=== PATIENT | female | born 1995 | race Caucasian/White ===

== ENCOUNTER 2017-08-01 21:32 | Emergency (ER) | payer OTHER ==
[~2017-08-01] VITALS: Ht 160 cm; Wt 104.3 kg
[~2017-08-01 21:32] MED LIST: MIRENA1 EACH; SERTRALINE HCL50 MG PO; TAMIFLU75 M1 PO
--- NOTE | 2017-08-01 22:03 | ED INFLUENZA/URI COMPLAINT ---
History of Present Illness General Chief Complaint: General Adult Stated Complaint: PT HAS A HIGH FEVER BODY ACHES Source: patient, family, old records Exam Limitations: no limitations Vital Signs & Intake/Output Vital Signs & Intake/Output Vital Signs Date Time Temp Pulse Resp B/P B/P Pulse O2 O2 Flow FiO2 Mean Ox Delivery Rate 08/01 2240 101.6 08/01 2240 101.8 106 20 124/80 99 Room Air 08/02 2155 103.7 08/01 2149 103.7 129 16 117/79 96 Allergies Coded Allergies: No Known Allergies (02/16/17) Reconcile Medications Ibuprofen 600 MG TABLET 1 TAB PO Q6P PRN pain, fever with food Levonorgestrel (Mirena) 20 MCG/24 HOUR (5 YEARS) IUD CONTROL (Reported) Nitrofurantoin Monohyd/M-Cryst (Macrobid 100 MG Capsule) 100 MG CAPSULE 1 CAP PO BID uti with food Oseltamivir Phosphate (Tamiflu) 75 MG CAPSULE 1 CAP PO BID flu Sertraline HCl 50 MG TABLET 1 TAB PO DAILY MENTAL HEALTH (Reported) Triage Note: PT PRESENTS TO THE ER C/O HIGH FEVER AND BODY ACHES. PT TOOK ADVIL 200 MG AT 1430. Triage Nurses Notes Reviewed? yes Onset: Yesterday Duration: day(s):, continues in ED Timing: recent history Severity: moderate Prior Episodes/Possible Cause: illness exposure Modifying Factors: Improves With: medication. Associated Symptoms: muscle aches LMP (ages 10-50): unknown : No Patient currently breastfeeds: No HPI: 3 days prior to admission patient complained of dysuria that is now better. 1 day prior to admission she reports fever myalgia. She denies anorexia vomiting diarrhea abdominal pain chest pain cough shortness breath headache rash bleeding. Past History Travel History Traveled to [place] past 21 day No Medical History Any Pertinent Medical History? see below for history Neurological: NONE EENT: NONE Cardiovascular: hyperlipidemia Respiratory: bronchitis, pneumonia Gastrointestinal: NONE Hepatic: NONE Renal: FREQUENT UTI'S Musculoskeletal: NONE Psychiatric: anxiety, depression Endocrine: NONE Blood Disorders: NONE Cancer(s): NONE RECREATIONAL COUNSELOR/Reproductive: endometriosis, OVARIAN CYSTS IUD History of MRSA: No History of VRE: No History of CDIFF: No Surgical History Surgical History: non-contributory Psychosocial History Who do you live with Family Services at Home None What is your primary language Yi Tobacco Use: Never used Family History Hx Contributory? No Review of Systems Review of Systems Constitutional: Reports: see HPI, fever. EENTM: Reports: no symptoms. Respiratory: Reports: no symptoms. Cardiovascular: Reports: no symptoms. GI: Reports: no symptoms. Genitourinary: Reports: see HPI, dysuria. Musculoskeletal: Reports: see HPI, muscle pain. Skin: Reports: no symptoms. Neurological/Psychological: Reports: no symptoms. Hematologic/Endocrine: Reports: no symptoms. Immunologic/Allergic: Reports: no symptoms. All Other Systems: Reviewed and Negative Physical Exam Physical Exam General Appearance: well developed/nourished, alert, awake, anxious, comfortable , obese Head: atraumatic, normal appearance Eyes: Bilateral: normal appearance, PERRL, EOMI. Ears, Nose, Throat: normal ENT inspection, moist mucous membrane, hearing grossly normal, Tympanic normal, pharynx normal Neck: normal inspection, supple, full range of motion, trachea midline, limited range of motion, lymphadenopathy (R), lymphadenopathy (L) Respiratory: normal breath sounds, chest non-tender, no respiratory distress, quiet respiration, lungs clear Cardiovascular: regular rate/rhythm, normal peripheral pulses, norml femoral pulses equa Peripheral Pulses: 4+ carotid (R), 4+ carotid (L) Gastrointestinal: normal bowel sounds, soft, non-tender, no organomegaly Back: normal inspection, normal range of motion, no vertebral tenderness Extremities: normal inspection, normal capillary refill, normal range of motion, no edema Neurologic/Psych: no motor/sensory deficits, awake, alert, oriented x 3, normal gait, normal mood/affect, try out person II-XII nml as tested Reflexes: 2+: bicep (R), bicep (L). Skin: intact, normal color, warm/dry Lymphatic: adenopathy Core Measures Sepsis Present: No Sepsis Focused Exam Completed? No Progress Differential Diagnosis: influenza, pharyngitis Plan of Care: Orders Procedure Date/time Status URINE 08/01 2199 Complete URINALYSIS 08/01 2199 Complete RAPID VIRAL INFLUENZA A 08/01 2144 Complete Laboratory Tests 08/01/172204: Urine Color YEL, Urine Clarity HAZY H, Urine pH 7.0, Ur Specific [place] 1.020, Urine Protein TRACE H, Urine Ketones NEG, Urine Nitrite POS H, Urine Bilirubin NEG, Urine Urobilinogen 0.2, Ur Leukocyte Esterase LARGE H, Ur Microscopic SEDIMENT EXAMINED, Urine RBC 1-3, Urine WBC 3-5 H, Ur Epithelial Cells FEW, Urine Bacteria MOD H, Urine Hemoglobin SMALL H, Urine Glucose NEG, Urine Test NEGATIVE Microbiology 08/01 2150 NASOPHARYN: Influenza Virus A & B Rapid Smear - COMP Initial ED EKG: none Departure Departure Time of Disposition: 2253 Disposition: HOME OR SELF CARE Condition: Stable Clinical Impression Primary Impression: Fever Secondary Impressions: UTI (urinary tract infection) Referrals: Elva VALENZUELA,Shirley Avila (PCP/Family) Departure Forms: Customer Survey General Discharge Information Prescriptions: Current Visit Scripts Nitrofurantoin Monohyd/M-Cryst (Macrobid 100 MG Capsule) 1 CAP PO BID #14 CAP with food Ibuprofen 1 TAB PO Q6P PRN pain, fever #30 TAB with food
[2017-08-01 22:41] VITALS: BP 124/80
[2017-08-01] MEDS ORDERED: MACROBID 100 M100 MG PO (22:57)
[2017-08-01] MEDS ORDERED: IBUPROFEN600 M1 PO (22:57)
== END 2017-08-01 23:09 ==
LOC: ERH 21:32
DX: N39.0 Urinary tract infection, site not specified (principal)
CPT/HCPCS: 81001; 81025; 87804; 87804-59